=== PATIENT | male | born 2000 | race Caucasian/White ===

== ENCOUNTER 2020-12-07 14:35 | Observation (INO) | payer SELFPAY ==
--- NOTE | ~2020-12-07 | CT_ITS ---
EXAMINATION: CT abdomen pelvis w con DATE: 12/07/2020 18:06 INDICATION: Left lower quadrant pain TECHNIQUE: Computed tomography (CT) of the abdomen and pelvis was performed with 100 cc Omnipaque 350 intravenous contrast. The dose-length product was 623.34 mGy-cm. Automated exposure control and iter ative reconstruction technique were employed. COMPARISON: None. FINDINGS: Lung bases are unremarkable. Heart size normal. No significant pleural or pericardial effus ion. No significant vascular abnormality. There is thickening of the distal tip of the appendix which crosses to the left of midline measuring up to 1.3 cm. There are appendicoliths in the distal aspect to the appendix with appendiceal wall enh ancement. Findings compatible with acute appendicitis. There is fatty infiltration of the wall of the colon. Nonobstructive bowel gas pattern. Gallbladder is present. The liver, spleen, pancreas, adrenal glands and kidneys are unremarkable. Fat-containing umbilical he rnia. IMPRESSION: 1. Elongated appendix which extends to the left of midline. There are multiple appendicoliths with wa ll thickening/enhancement and mild periappendiceal inflammation, compatible with acute uncomplicated appendicitis. Reviewed, dictated and finalized at location [facility]. [employer] IMPRESSION: 1. Elongated appendix which extends to the left of midline. There are multiple appendicoliths with wall thickening/enhancement and mild periappendiceal inflam mation, compatible with acute uncomplicated appendicitis.
[2020-12-07 15:31] VITALS: BP 147/84; PULSE 93; RESP 18; O2SAT 99
[2020-12-07 15:43] LABS: Basophils Percent Auto 0.2 % (0.2-1.2); Eosinophils Percent Auto 0.2 % (0-4.4); Hemoglobin 15.7 g/dL (14.0-18.0); Immature Granulocyte Absolute 0.07 K/mm3 (0.00-0.031); Immature Granulocyte Percent A 0.5 % (0-0.5); Lymphocytes Absolute Auto 1.28 K/mm3 (0.9-3.2); Lymphocytes Percent Auto 8.4 % (18.3-44.2); Mean Corpuscular HGB Conc 34.9 g/dl (32-36); Mean Corpuscular Hemoglobin 31.6 pg (26-34); Mean Corpuscular Volume 90.5 fl (80-100); Mean Platelet Volume 10.9 fl (7.4-10.4); Monocytes Absolute Auto 0.8 K/mm3 (0.1-0.6); Neutrophils Absolute Auto 13.1 K/mm3 (1.3-6.7); Neutrophils Percent Auto 85.7 % (45.5-73.1); Platelet Count Result 205 k/mm3 (150-375); Red Blood Count 4.97 M/mm3 (4.6-6.20); Red Cell Distribution Width 11.9 % (11.5-14.5); White Blood Count 15.3 K/mm3 (4.5-10.0)
[2020-12-07 15:50] LABS: Add Urine Microscopic? YES; Amorphous Sediment Urine Few; Appearance Urine Clear (Clear); Bacteria Urine Trace /hpf; Bilirubin Urine Negative (Negative); Blood Urine Negative (Negative); Color Urine Yellow (Yellow); Glucose Urine UA 1+ mg/dL (Negative); Ketones Urine Trace mg/dL (Negative); Leukocyte Esterase Ur Negative LEU/UL (Negative); Mucus Urine Few /lpf; Nitrate Urine Negative (Negative); Protein Urine Negative (Negative); RBC Urine 0-2 /hpf (0-2); Specific Grav Ur 1.024 (1.001-1.035); Squamous Epithelial Cell Urine Rare /hpf (Few); Urobilinogen Urine Negative mg/dL (<2.0); WBC Urine 0-3 /hpf
[2020-12-07 15:54] LABS: Alanine Aminotransferase 22 U/L (4-50); Albumin Level 4.7 g/dL (3.5-5.1); Alkaline Phosphatase 64 U/L (38-126); Anion Gap 9 mmol/L (8-16); Aspartate Amino Transferase 22 U/L (17-59); Bilirubin,Total 0.7 mg/dL (0.2-1.3); Blood Urea Nitrogen 9 mg/dL (9-20); Calcium 9.5 mg/dL (8.4-10.2); Carbon Dioxide 29 mmol/L (22-30); Chloride 103 mmol/L (98-107); Estimated CRCL calculation 131 ml/min; Estimated Glomerular Filt Rate > 60; Glucose 126 mg/dL (75-110); Lipase 56 U/L (23-300); Potassium 3.7 mmol/L (3.4-5.0); Sodium 141 mmol/L (137-145)
--- NOTE | 2020-12-07 17:05 | ED.ABDPAIN ---
HPI - Abdominal Pain General Chief Complaint: Abdominal Pain Stated Complaint: Right Lower Quad Pain Time Seen by Provider: 12/07/20 16:35 Source: patient Mode of arrival: ambulatory Limitations: no limitations History of Present Illness HPI narrative: Patient is a 20-year-old male who presents to emergency department for evaluation of abdominal pain for the last several days that is worsened in severity patient notes pain to the left lower quadrant and left side of the abdomen today did have several episodes of loose stools patient on arrival to emergency department notes that today the pain intensified with associated nausea patient has not had anything for his symptoms nor is he been seen for this complaint denies similar occurrence in the past. Patient denies rectal bleeding melena Related Data Home Medications Medication Instructions Recorded Confirmed No Home Medications 12/07/20 12/07/20 Allergies Allergy/AdvReac Type Severity Reaction Status Date / Time nickel Allergy Rash Verified 12/07/20 15:34 Review of Systems Review of Systems: All systems reviewed & are unremarkable except as noted in HPI and below PMFSH Social History Social History (Updated 12/07/20 @ 17:06 by Ruben Hobbs PA-C) Smoking status: Never smoker Gender identity (if verbalized by the patient): Male Exam Narrative: Exam Narrative: GENERAL: Well-appearing, well-nourished, and in no acute distress. HEAD: Normocephalic, atraumatic. EYES: PERRLA and EOMI. ENT: Nares clear, no rhinorrhea or epistaxis. Mucous membranes moist. CHEST: Clear to auscultation. No respiratory distress. No wheezes rales or rhonchi HEART: Regular rate and rhythm. No murmur heard. Normal peripheral pulses. ABDOMEN: Soft, left-sided abdominal tenderness with voluntary guarding, nondistended, normal active bowel sounds. EXTREMITIES: Normal range of motion. No edema. SKIN: Warm, dry, no rash. NEURO: No focal deficits. Alert and oriented x3. PSYCH: Normal mood and affect. Course Course Emergency Course: Patient was found to have acute appendicitis uncomplicated will be placed in hospital has been hydrated pain well controlled felt appropriate for inpatient therapy will be admitted to the surgical team for removal of appendix tomorrow Consultations Consultation #1: Spoke with Dr. Wilson who would like the patient to be admitted to his service with planned appendectomy for the morning would like [facility]reed[facility] for antibiotic n.p.o. status Date: 12/07/20 Time: 18:32 Vital Signs Vital signs: Vital Signs Pulse Rate 93 12/07/20 15:31 Respiratory Rate 18 12/07/20 15:31 Blood Pressure 147/84 H 12/07/20 15:31 Pulse Oximetry 99 12/07/20 15:31 Pulse Rate 93 12/07/20 15:31 Respiratory Rate 18 12/07/20 15:31 Blood Pressure 147/84 H 12/07/20 15:31 Pulse Oximetry 99 12/07/20 15:31 MDM - Abdominal Pain MDM Narrative Medical decision making narrative: Patient with acute appendicitis will be placed in hospital for planned appendectomy in the morning Lab Data Result diagrams: 12/07/20 15:35 12/07/20 15:35 Labs: Lab Results 12/07/20 12/07/20 12/07/20 Range/Units 15:35 15:35 15:36 WBC 15.3 H (4.5-10.0) K/mm3 RBC 4.97 (4.6-6.20) M/mm3 Hgb 15.7 (14.0-18.0) g/dL Hct 45.0 (42.0-52.0) % MCV 90.5 (80-100) fl MCH 31.6 (26-34) pg MCHC 34.9 (32-36) g/dl RDW 11.9 (11.5-14.5) % Plt Count 205 (150-375) k/mm3 MPV 10.9 H (7.4-10.4) fl Immature Gran % (Auto) 0.5 (0-0.5) % Neut % (Auto) 85.7 H (45.5-73.1) % Lymph % (Auto) 8.4 L (18.3-44.2) % [place] % (Auto) 5.0 (2.6-8.5) % Eos % (Auto) 0.2 (0-4.4) % Baso % (Auto) 0.2 (0.2-1.2) % Lymph # (Auto) 1.28 (0.9-3.2) K/mm3 [place] # (Auto) 0.8 H (0.1-0.6) K/mm3 Eos # (Auto) 0.0 (0-0.3) K/mm3 Baso # (Auto) 0.0 (0.0-0.1) K/mm3 Abs Immat Gran (auto) 0.07 H (0.00-0.031) K/mm3 Absolute
[2020-12-07] MEDS: SODIUM CHLORIDE 0.9% IV 1,000 ML 999 ML IV CONT (17:28)
[2020-12-07] MEDS: FAMOTIDINE 20 MG/2 ML VIAL IV PUSH ×2 (17:28→21:50)
[2020-12-07 20:47] VITALS: BP 121/74; PULSE 78; RESP 16; TEMP 36.7; O2SAT 99
[2020-12-07] MEDS: LACTATED RINGERS 1,000 ML 100 ML IV CONT (21:13)
[2020-12-07 21:15] VITALS: BP 136/76; PULSE 64; RESP 18; TEMP 36.4; O2SAT 100
[2020-12-07 21:16] VITALS: BMI 26.9
--- NOTE | 2020-12-07 21:24 | ADMGEN ---
This patient, Spring Zee, was admitted to Medical Room 250-01. Patient/family oriented to hospital policies and general routines including ID bracelet, bed and alarms, visiting hours, pain management, procedures, bathroom and other care routines, personal items, smoking policy, room service/diet, and visiting hours. Information on how to activate the Rapid Response Team has been discussed. Patient/Family are encouraged to report perceived risks to care and to ask questions if they do not understand what they are told or what they should do.
[2020-12-07 22:00] VITALS: BP 135/73; PULSE 73; RESP 14; TEMP 36.8; O2SAT 100
[2020-12-07 23:01] VITALS: TEMP 37.9
[2020-12-08] VITALS (15 sets, daily range): BP systolic 110–146; BP diastolic 58–88; PULSE 66–104; RESP 12–28; TEMP 36.6–37.6; O2SAT 92–100
[2020-12-08] MEDS: MORPHINE SULFATE (*CRX) 2 MG/ML INJ IV PUSH ×3 (01:28→12:01)
[2020-12-08] MEDS: ONDANSETRON INJ 4 MG/2 ML VIAL IV PUSH ×2 (04:52→10:03)
[2020-12-08 05:45] LABS: Basophils Percent Auto 0.2 % (0.2-1.2); Eosinophils Percent Auto 0.2 % (0-4.4); Hematocrit 43.2 % (42.0-52.0); Hemoglobin 14.9 g/dL (14.0-18.0); Immature Granulocyte Absolute 0.08 K/mm3 (0.00-0.031); Immature Granulocyte Percent A 0.5 % (0-0.5); Lymphocytes Absolute Auto 0.96 K/mm3 (0.9-3.2); Lymphocytes Percent Auto 5.6 % (18.3-44.2); Mean Corpuscular HGB Conc 34.5 g/dl (32-36); Mean Corpuscular Hemoglobin 31.4 pg (26-34); Mean Corpuscular Volume 90.9 fl (80-100); Mean Platelet Volume 11.2 fl (7.4-10.4); Monocytes Absolute Auto 1.6 K/mm3 (0.1-0.6); Monocytes Percent Auto 9.2 % (2.6-8.5); Neutrophils Absolute Auto 14.5 K/mm3 (1.3-6.7); Neutrophils Percent Auto 84.3 % (45.5-73.1); Platelet Count Result 172 k/mm3 (150-375); Red Blood Count 4.75 M/mm3 (4.6-6.20); Red Cell Distribution Width 11.9 % (11.5-14.5); White Blood Count 17.2 K/mm3 (4.5-10.0)
--- NOTE | 2020-12-08 07:10 | P.PNAN_ITS ---
Anes - Eval Pre Procedure Procedure: Operation Date: 12/08/20 09:00 Proposed Procedures p Laparoscopic Appendectomy - Anais Wilson MD Date/Time: 12/08/20 07:10 Pre Op Diagnosis: Acute Appendicitis Patient Data Age: 20 Gender: M Height: 1.88 m Weight: 95 kg Last Vital Signs Temp 37.4 C 12/08/20 05:38 Pulse 104 H 12/08/20 05:38 Resp 18 12/08/20 05:38 BP 122/68 12/08/20 05:38 Pulse Ox 97 12/08/20 05:38 Allergies Allergy/AdvReac Type Severity Reaction Status Date / Time nickel Allergy Rash Verified 12/07/20 15:34 Home Medications Medication Instructions Recorded Confirmed Type No Home Medications 12/07/20 12/07/20 History Laboratory Tests 12/07/20 12/07/20 12/07/20 15:35 15:35 15:36 WBC 15.3 K/mm3 H K/mm3 (4.5-10.0) RBC 4.97 M/mm3 M/mm3 (4.6-6.20) Hgb 15.7 g/dL g/dL (14.0-18.0) Hct 45.0 % % (42.0-52.0) MCV 90.5 fl fl (80-100) MCH 31.6 pg pg (26-34) MCHC 34.9 g/dl g/dl (32-36) RDW 11.9 % % (11.5-14.5) Plt Count 205 k/mm3 k/mm3 (150-375) MPV 10.9 fl H fl (7.4-10.4) Immature Gran % (Auto) 0.5 % % (0-0.5) Neut % (Auto) 85.7 % H % (45.5-73.1) Lymph % (Auto) 8.4 % L % (18.3-44.2) [place] % (Auto) 5.0 % % (2.6-8.5) Eos % (Auto) 0.2 % % (0-4.4) Baso % (Auto) 0.2 % % (0.2-1.2) Lymph # (Auto) 1.28 K/mm3 K/mm3 (0.9-3.2) [place] # (Auto) 0.8 K/mm3 H K/mm3 (0.1-0.6) Eos # (Auto) 0.0 K/mm3 K/mm3 (0-0.3) Baso # (Auto) 0.0 K/mm3 K/mm3 (0.0-0.1) Abs Immat Gran (auto) 0.07 K/mm3 H K/mm3 (0.00-0.031) Absolute Neuts (auto) 13.1 K/mm3 H K/mm3 (1.3-6.7) Absolute Nucleated RBC 0.0 K/mm3 K/mm3 (0.0-0.012) Nucleated RBC % 0.0 % % (0.0-0.2) Sodium 141 mmol/L mmol/L (137-145) Potassium 3.7 mmol/L mmol/L (3.4-5.0) Chloride 103 mmol/L mmol/L (98-107) Carbon Dioxide 29 mmol/L mmol/L (22-30) Anion Gap 9 mmol/L mmol/L (8-16) BUN 9 mg/dL mg/dL (9-20) Creatinine 0.90 mg/dL mg/dL (0.7-1.3) Estim Creat Clear Calc 131 ml/min ml/min Estimated GFR > 60 (59 - ) Glucose 126 mg/dL H mg/dL (75-110) Calcium 9.5 mg/dL mg/dL (8.4-10.2) Total Bilirubin 0.7 mg/dL mg/dL (0.2-1.3) AST 22 U/L U/L (17-59) ALT 22 U/L U/L (4-50) Alkaline Phosphatase 64 U/L U/L (38-126) Total Protein 8.0 g/dL g/dL (6.3-8.2) Albumin 4.7 g/dL g/dL (3.5-5.1)
--- NOTE | 2020-12-08 07:39 | PC.NURSE ---
To OR per [bed], IV [LFA 22].
[2020-12-08] MEDS: LACTATED RINGERS 1,000 ML 30 ML IV CONT ×2 (07:40→09:22)
--- NOTE | 2020-12-08 07:46 | WPDANESEPPF ---
Anes - Initial Pre Proc Eval Procedure: Operation Date: 12/08/20 09:00 Proposed Procedures p Laparoscopic Appendectomy - Anais Wilson MD Date/Time: 12/08/20 07:46 Surgeon: Anais Wilson MD Pre Op Diagnosis: Acute Appendicitis Patient Data Age: 20 Gender: M Height: 1.88 m Weight: 95 kg Last Vital Signs Temp 37.4 C 12/08/20 05:38 Pulse 104 H 12/08/20 05:38 Resp 18 12/08/20 05:38 BP 122/68 12/08/20 05:38 Pulse Ox 97 12/08/20 05:38 Allergies Allergy/AdvReac Type Severity Reaction Status Date / Time nickel Allergy Rash Verified 12/07/20 15:34 Home Medications Medication Instructions Recorded Confirmed Type No Home Medications 12/07/20 12/07/20 History Laboratory Tests 12/07/20 12/07/20 12/07/20 15:35 15:35 15:36 WBC 15.3 K/mm3 H K/mm3 (4.5-10.0) RBC 4.97 M/mm3 M/mm3 (4.6-6.20) Hgb 15.7 g/dL g/dL (14.0-18.0) Hct 45.0 % % (42.0-52.0) MCV 90.5 fl fl (80-100) MCH 31.6 pg pg (26-34) MCHC 34.9 g/dl g/dl (32-36) RDW 11.9 % % (11.5-14.5) Plt Count 205 k/mm3 k/mm3 (150-375) MPV 10.9 fl H fl (7.4-10.4) Immature Gran % (Auto) 0.5 % % (0-0.5) Neut % (Auto) 85.7 % H % (45.5-73.1) Lymph % (Auto) 8.4 % L % (18.3-44.2) [place] % (Auto) 5.0 % % (2.6-8.5) Eos % (Auto) 0.2 % % (0-4.4) Baso % (Auto) 0.2 % % (0.2-1.2) Lymph # (Auto) 1.28 K/mm3 K/mm3 (0.9-3.2) [place] # (Auto) 0.8 K/mm3 H K/mm3 (0.1-0.6) Eos # (Auto) 0.0 K/mm3 K/mm3 (0-0.3) Baso # (Auto) 0.0 K/mm3 K/mm3 (0.0-0.1) Abs Immat Gran (auto) 0.07 K/mm3 H K/mm3 (0.00-0.031) Absolute Neuts (auto) 13.1 K/mm3 H K/mm3 (1.3-6.7) Absolute Nucleated RBC 0.0 K/mm3 K/mm3 (0.0-0.012) Nucleated RBC % 0.0 % % (0.0-0.2) Sodium 141 mmol/L mmol/L (137-145) Potassium 3.7 mmol/L mmol/L (3.4-5.0) Chloride 103 mmol/L mmol/L (98-107) Carbon Dioxide 29 mmol/L mmol/L (22-30) Anion Gap 9 mmol/L mmol/L (8-16) BUN 9 mg/dL mg/dL (9-20) Creatinine 0.90 mg/dL mg/dL (0.7-1.3) Estim Creat Clear Calc 131 ml/min ml/min Estimated GFR > 60 (59 - ) Glucose 126 mg/dL H mg/dL (75-110) Calcium 9.5 mg/dL mg/dL (8.4-10.2) Total Bilirubin 0.7 mg/dL mg/dL (0.2-1.3) AST 22 U/L U/L (17-59) ALT 22 U/L U/L (4-50) Alkaline Phosphatase 64 U/L U/L (38-126) Total Protein 8.0 g/dL g/dL (6.3-8.2) Albumin 4.7 g/dL g/dL (3.5-5.1) Lipase 56 U/L U/L (23-300) Urine Color Yellow (Yellow) Urine Appearance Clear (Clear) Urine pH 5.0 (5.0-9.0) Ur Specific [place] 1.024 (1.001-1.035) Urine Protein Negative mg/dL mg/dL (Negative) Urine Glucose (UA) 1+ mg/dL H mg/dL (Negative) Urine Ketones Trace mg/dL mg/dL (Negative) Ur Blood (Man) Negative (Negative) Urine Nitrate Negative (Negative) Urine Bilirubin Negative (Negative) Urine Urobilinogen Negative mg/dL mg/dL (<2.0) Leukocyte Esterase Rfl Negative GHULAM/UL GHULAM/UL (Negative) Urine RBC 0-2 /hpf /hpf (0-2) Urine WBC 0-3 /hpf /hpf Ur Squamous Epith Cells Rare /hpf /hpf (Few) Amorphous Sediment Few H (None) Urine Bacteria Trace /hpf /hpf Hyaline Casts 1-2 /lpf /lpf (None) Urine Mucus Few /lpf H /lpf 12/08/20 05:08 WBC 17.2 K/mm3 H K/mm3 (4.5-10.0) RBC 4.75 M/mm3 M/mm3 (4.6-6.20) Hgb 14.9 g/dL g/dL (14.0-18.0) Hct 43.2 % % (42.0-52.0) MCV 90.9 fl fl (80-100) MCH 31.4 pg pg (26-34) MCHC 34.5 g/d
--- NOTE | 2020-12-08 08:14 | PM.IMHP ---
H&P: HPI History of Present Illness Date/Time: 12/08/20 08:14 Chief Complaint: abdominal pain Narrative: Spring Zee is a 20 year old male presenting to ED c/o severe lower abd pain c radiation to the back. Pt reports pain is severe and constant, worsened by movement. Pt reports assoc anorexia and nausea. Pt denies any previous episodes. Review of Systems Constitutional: Constitutional: Reports anorexia, Denies body ache(s), Denies chills, Reports fatigue, Denies fever(s), Reports lethargy, Denies malaise, Reports poor appetite, Reports weakness, Denies weight gain and Denies weight loss Eyes: Eyes: Reports no additional eye complaints ENT: Reports system reviewed and no additional complaints, except as documented Cardiovascular: Cardiovascular: Reports no additional cardiovascular complaints Respiratory: Respiratory: Reports no additional respiratory complaints Gastrointestinal: Gastrointestinal: Reports as per HPI Genitourinary: Genitourinary: Reports no additional male genitourinary complaints Musculoskeletal: Musculoskeletal: Reports no additional musculoskeletal complaints Integumentary/Breasts: Skin/Breast: Reports system reviewed and no additional complaints, except as docu Neurologic: Reports system reviewed and no additional complaints, except as documented Psychiatric: Psychiatric: Reports no additional psychiatric complaints Endocrine: Endocrine: Reports no additional endocrine complaints Hematologic/Lymphatic: Hematologic/Lymphatic: Reports no additional hematologic/lymphatic complaints Allergic/Immunologic: Allergic/Immunologic: Reports no additional allergic/immunologic complaints PMFSH Past Medical History Medical History Overweight Family History Family History Sibling Type 1 diabetes mellitus Mother Diabetes mellitus Social History Social History Smoking status: Never smoker Alcohol intake: current Drinks per week: 1 Substance use: never Gender identity (if verbalized by the patient): Male Spiritual care concerns: No Comments pt denies any past abd surgeries Meds Home Medications and Allergies Home Medications Medication Instructions Recorded Confirmed Type No Home Medications 12/07/20 12/07/20 History Allergies Allergy/AdvReac Type Severity Reaction Status Date / Time nickel Allergy Rash Verified 12/07/20 15:34 Vital Signs Vital Signs - 24 hr 12/07/20 15:31 12/07/20 20:47 12/07/20 21:15 Temperature 36.7 C 36.4 C L Pulse Rate 93 78 64 Respiratory Rate 18 16 18 Blood Pressure 147/84 H 121/74 136/76 Pulse Oximetry 99 99 100 12/07/20 22:00 12/07/20 23:01 12/08/20 02:00 Temperature 36.8 C 37.9 C H 37.2 C Pulse Rate 73 94 Respiratory Rate 14 14 Blood Pressure 135/73 111/58 L Pulse Oximetry 100 99 12/08/20 05:38 Temperature 37.4 C Pulse Rate 104 H Respiratory Rate 18 Blood Pressure 122/68 Pulse Oximetry 97 Exam Const: General: cooperative, well developed and acute distress mild Nutritional Appearance: overweight Orientation/consciousness: patient oriented x3 Limitations: no limitations HENMT: Head: normal to inspection, normocephalic and atraumatic Ears: hearing grossly normal bilaterally General nose exam: Normal external nose present Face and sinus: normal facial exam Mouth: Yes Normal oral and palatal mucosa present and Yes moist mucous membranes Eyes: General: appearance normal, both eyes and all related structures Pupils: Equal, round and reactive pupils present EOM: EOMs intact bilaterally Neck: Neck: normal visual inspection, full ROM and no lymphadenopathy Chest: Chest palpation & inspection: normal inspection of the chest Resp: Effort & Inspection: normal respiratory effort Auscultation: clear to auscultation bilaterally Cardio: Jugular venous
--- NOTE | 2020-12-08 08:19 | WPDHPUPDATE1 ---
History and Physical Update Update Date/Time: 12/08/20 08:19 History and Physical has been reviewed, including an updated exam of the patient. There are NO changes in the patient's condition. Risks, benefits, and alternatives have been discussed and questions answered. Patient agrees to proceed with procedure.
[2020-12-08] MEDS: BUPIVACAINE/EPINEPHRINE 0.25% 50 ML VIAL 20 ML INFILTRATE (08:54)
--- NOTE | 2020-12-08 09:18 | PM.PROC ---
Procedure Note - Detailed Date of procedure: 12/08/20 Pre-op diagnosis: Acute Appendicitis acute appendicitis Procedure performed: Laparoscopic appendectomy Description of procedure: The patient was brought into the operating room placed in the supine position. After adequate induction of general anesthesia, the patient was prepped and draped in normal sterile fashion. A time-out was then done to verify the patient's identity as well as the procedure being performed. I began by making a 5 mm incision in the infraumbilical region. A veres needle was used to gain access into the peritoneal cavity. Once into the peritoneal cavity, CO2 gas was insufflated. After adequate pneumoperitoneum was achieved, a 5 mm Optiview trocar was placed into the peritoneal cavity. The laparoscope was placed into the 5 mm trocar. Under direct visualization, I went ahead and placed a further 5 mm suprapubic port as well as a 12 mm port in the left lower abdomen. At this point, I was able to visualize cecum. The cecum was retracted both cephalad and medial, and this allowed us to expose the appendix. The appendix was noted to be very dilated, injected, and inflamed. There was no obvious perforation of the appendix. I then grasped the appendix near the tip of the appendix and retracted both anterior and lateral. This allowed exposure of the base of the appendix with the cecum. I then created a window with the Marisol dissector between the appendix and the mesoappendix at the base of the appendix. Once this was achieved, a vascular staple load on the Endo-ANTONIO was placed through the 12 mm port site and subsequently transected the mesoappendix. I then reloaded the Endo-ANTONIO with a blue staple load and transected the base of the appendix with the cecum. Once the appendiceal specimen was completely detached, a Endo pouch was placed through the 12 mm port site. The appendix was placed into the Endo pouch and removed through the 12 mm port site. The appendix will now be sent to pathology for further review. I then visualized the right lower quadrant, both staple lines were noted to be intact and hemostatic. No other pathology was noted in the right lower quadrant or pelvis. I then moved the laparoscope to the 5 mm suprapubic port. I then visualized our port of entry at the 5 mm infraumbilical site. No iatrogenic injury or other pathology was seen in the upper abdomen. I then desufflated the abdomen and all ports were removed. The fascia of the 12 mm port site was closed with an 0 Vicryl figure of 8 suture. All port sites were then closed with 4 O Monocryl subcuticular suture. The patient tolerated the procedure well and was extubated in the operating room postoperatively. The patient will be transferred to the recovery room in stable condition. Anesthesia: GETA Surgeon: Anais Wilson MD Estimated blood loss (mL): 5 Drains: No Packing: No Pathology: yes Complications: No immediate complications Condition: stable Disposition: PACU Findings: Acute uncomplicated appendicitis
--- NOTE | 2020-12-08 09:20 | PM.DS ---
DS: Admitting Diagnosis Admitting Diagnosis Admitting Diagnosis: acute appendicitis DS: Discharge Diagnosis Discharge Diagnosis (1) Acute appendicitis: Code(s): K35.80 - Unspecified acute appendicitis Status: Acute Assessment and Plan: s/p lap appy, doing well, routine postop care, f/u 2 wks DS: Summary Hospital Course Reason for hospitalization: acute appendicitis Hospital Course: Pt is a 20 y/o M presenting to ED c/o severe lower abd pain. Workup in ED, including imaging, was significant for acute appendicitis. Pt was admitted and started on IV abx. Upon eval by surgery, decision was made to proceed to OR urgently for appendectomy. Pt taken for lap appy, please see full report for details. Postop, pt did well and will be dc'd home c instructions for routine postop care and po analgesia. Pt to f/u in 2 wks. Status at Discharge Functional status at discharge: independent ambulation Overall status at discharge: patient is progressing back to baseline Time Spent with Patient Time attestation: Total time spent providing and/or coordinating discharge services: Time spent: Less than 30 minutes Exam Const: General: cooperative, comfortable and no acute distress Resp: Effort & Inspection: normal respiratory effort Auscultation: clear to auscultation bilaterally Cardio: Rate: regular rate Rhythm: regular rhythm GI: Inspection: normal to inspection, distended and incision GI Palp: Yes Soft to palpation, Yes Tenderness to palpation present (GI), No Guarding due to palpation present (GI) and No Rigid due to palpation Other: soft, sl dist, jessica TTP, incisions C/D/I DS: Data Data Completed and Pending Pending studies at discharge: Pending at discharge 12/08/20 08:57 Surgical [PTH] Routine Labs on day of discharge: Labs from last 24 hours 12/08/20 12/07/20 12/07/20 05:08 15:36 15:35 WBC 17.2 H RBC 4.75 Hgb 14.9 Hct 43.2 MCV 90.9 MCH 31.4 MCHC 34.5 RDW 11.9 Plt Count 172 MPV 11.2 H Immature Gran % (Auto) 0.5 Neut % (Auto) 84.3 H Lymph % (Auto) 5.6 L [place] % (Auto) 9.2 H Eos % (Auto) 0.2 Baso % (Auto) 0.2 Lymph # (Auto) 0.96 [place] # (Auto) 1.6 H Eos # (Auto) 0.0 Baso # (Auto) 0.0 Abs Immat Gran (auto) 0.08 H Absolute Neuts (auto) 14.5 H Absolute Nucleated RBC 0.0 Nucleated RBC % 0.0 Sodium 141 Potassium 3.7 Chloride 103 Carbon Dioxide 29 Anion Gap 9 BUN 9 Creatinine 0.90 Estim Creat Clear Calc 131 Estimated GFR > 60 Glucose 126 H Calcium 9.5 Total Bilirubin 0.7 AST 22 ALT 22 Alkaline Phosphatase 64 Total Protein 8.0 Albumin 4.7 Lipase 56 Urine Color Yellow Urine Appearance Clear Urine pH 5.0 Ur Specific [place] 1.024 Urine Protein Negative Urine Glucose (UA) 1+ H Urine Ketones Trace Ur Blood (Man) Negative Urine Nitrate Negative Urine Bilirubin Negative Urine Urobilinogen Negative Leukocyte Esterase Rfl Negative Urine RBC 0-2 Urine WBC 0-3 Ur Squamous Epith Cells Rare Amorphous Sediment Few H Urine Bacteria Trace Hyaline Casts 1-2 Urine Mucus Few H 12/07/20 15:35 WBC 15.3 H RBC 4.97 Hgb 15.7 Hct 45.0 MCV 90.5 MCH 31.6 MCHC 34.9 RDW 11.9 Plt Count 205 MPV 10.9 H Immature Gran % (Auto) 0.5 Neut % (Auto) 85.7 H Lymph % (Auto) 8.4 L [place] % (Auto) 5.0 Eos % (Auto) 0.2 Baso % (Auto) 0.2 Lymph # (Auto) 1.28 [place] # (Auto) 0.8 H Eos # (Auto) 0.0 Baso # (Auto) 0.0 Abs Immat Gran (auto) 0.07 H Absolute Neuts (auto) 13.1 H Absolute Nucleated RBC 0.0 Nucleated RBC % 0.0 Sodium Potassium Chloride Carbon Dioxide Anion Gap BUN Creatinine Estim Creat Clear Calc Estimated GFR Glucose Calcium Total Bilirubin AST ALT Alkaline Phosphatase Total Protein Albumin Lipase Urine Color Urine Appearance Urine pH Ur Specific [place] Ur
[2020-12-08] MEDS: fentaNYL CITRATE INJ (*CRX) 100 MCG/2 ML VIAL 25 MCG IV PUSH ×4 (10:09→10:51)
--- NOTE | 2020-12-08 11:13 | PC.NURSE ---
Returned from OR per bed. Report received from Bart ERVIN.
[2020-12-08] MEDS: FAMOTIDINE 20 MG/2 ML VIAL IV PUSH (11:18)
[2020-12-08] MEDS: HYDROcodone/acetaminophen (*CRX) 5-325 MG TABLET 1 TAB PO (15:09)
== END 2020-12-08 17:30 | disposition home or self-care (01) ==
LOC: ANHED 18:37 → ANH2MED 19:40
PROVIDERS: Emergency Medicine Emergency Medical Services; Admitting Provider Surgery; Emergency Provider Emergency Medicine; Visit Provider Surgery
PROC: 0DTJ4ZZ Resection of Appendix, Percutaneous Endoscopic Approach (ICD-10-PCS; CPT 44970; principal; 2020-12-08 09:00)
DX: K35.30 Acute appendicitis with localized peritonitis, without perforation or gangrene (principal); R10.9 Unspecified abdominal pain; E66.3 Overweight; Z68.26 Body mass index [BMI] 26.0-26.9, adult
CPT/HCPCS: 44970; 36415; 74177; 80053; 81001; 83690; 85025; 88304; 96361; 96365; 96366; 96367; 96375; 96376; 99285; A9270; G0378; G0379; J0131; J0330; J1100; J2250; J2270; J2405; J2543; J2704; J3010; J7030; J7120; Q9967

== ENCOUNTER 2020-12-20 15:00 | Observation (INO) | payer SELFPAY ==
--- NOTE | ~2020-12-20 | CT_ITS ---
EXAMINATION: CT abdomen pelvis w con EXAM DATE: 12/20/2020 19:06 INDICATION: Right lower quadrant pain, status post appendectomy. TECHNIQUE: Spiral CT of the abdomen and pelvis was performed following intravenous injection of 100 m L Omnipaque 350. Axial, coronal and sagittal images were reviewed. The dose-length product (DLP) fo r this examination was 528.03 mGy-cm. The exposure was tailored according to patient size (auto mA e xposure control), and iterative reconstruction (ASIR) was used as additional dose reduction technique . Comparison is made to prior examination from 12/07/2020. FINDINGS: Surgical changes from interval appendectomy. There is phlegmon at the surgical site, with a 2 cm pericecal region which could be early organizing abscess. Some reactive lymphadenopathy. There is edema of the cecum and the terminal ileum. Small amount of reactive free pelvic fluid. No free air . The liver, spleen, adrenal glands and pancreas are unremarkable. Splenule. Gallbladder is unremarkabl e. No biliary obstruction. Portal and splenic veins are patent. Kidneys enhance symmetrically. Th ere is no hydronephrosis. The prostate is unremarkable. The bladder is unremarkable. There is no retroperitoneal or pelvic lymphadenopathy. The stomach and small bowel are unremarkable. There is expected amount of colonic stool. The heart is normal in size. There are no pericardial or pleural effusions. The lung bases are unremarkable. The bones are unremarkable. IMPRESSION: Pericecal phlegmon and possibly early organizing abscess. Reviewed, dictated and finalized at location A. ER
[2020-12-20 15:09] VITALS: BP 149/81; PULSE 114; RESP 18; TEMP 36.4; O2SAT 100
--- NOTE | 2020-12-20 15:16 | ED.ABDPAIN ---
HPI - Abdominal Pain General Chief Complaint: Abdominal Pain Stated Complaint: abd pain Time Seen by Provider: 12/20/20 15:05 Source: patient Mode of arrival: ambulatory Limitations: clinical condition History of Present Illness HPI narrative: Patient is 20 years old white male presents with right lower quadrant pain started last night, sharp, no radiation, worse with movement, better laying down still. Patient denies any fever, chills, nausea, vomiting. Patient is status post appendectomy 2 weeks ago. Related Data Allergies Allergy/AdvReac Type Severity Reaction Status Date / Time nickel Allergy Rash Verified 12/08/20 08:34 Review of Systems Review of Systems: Narrative: CONSTITUTIONAL: Denies fever, chills, or sweats. EYES: Denies visual changes, redness, or discharge. ENT: Denies rhinorrhea, congestion, sore throat, or otalgia. CARDIOVASCULAR: Denies chest pain, palpitations, or edema. RESPIRATORY: Denies cough or dyspnea. GASTROINTESTINAL: Denies abdominal pain, nausea, vomiting, or diarrhea. GENITOURINARY: Denies dysuria or hematuria. SKIN: Denies rash or itching. MUSCULOSKELETAL: Denies back pain, joint pain, or myalgia. NEUROLOGIC: Denies headache, numbness, or weakness. PSYCHIATRIC: Denies anxiety or depression. [facility] Past Medical History Medical History Overweight Family History Family History Sibling Type 1 diabetes mellitus Mother Diabetes mellitus Social History Social History Smoking status: Never smoker Alcohol intake: current Drinks per week: 1 Substance use: never Gender identity (if verbalized by the patient): Male Spiritual care concerns: No Exam Narrative: Exam Narrative: General appearance: Well-developed, well-nourished Skin: Normal color Head: Normocephalic, nontraumatic Eyes: Clear conjunctiva ENT: Oropharynx normal, ears normal, nose normal Neck: Supple, nontender Chest and respiratory: Airway patent, no respiratory distress, no accessory muscle use Heart: Regular rate/rhythm Abdomen: Soft, severe tenderness right lower quadrant, no organomegaly, quiet bowel sounds Vascular: Normal peripheral pulses, normal capillary refill. Musculoskeletal: Normal range of motion, nontender back Neurologic: Alert and oriented ?3, CASKET LINER is normal as tested, no gross motor deficit Course Course Emergency Course: Stable Consultations Consultation #1: DR SMITH Admit to Dr. Wilson, n.p.oJoe, Sreedhar BANKS Date: 12/20/20 Time: 20:43 Vital Signs Vital signs: Vital Signs Temperature 36.4 C L 12/20/20 15:09 Pulse Rate 114 H 12/20/20 15:09 Respiratory Rate 18 12/20/20 15:09 Blood Pressure 149/81 H 12/20/20 15:09 Pulse Oximetry 100 12/20/20 15:09 Temperature 36.4 C L 12/20/20 15:09 Pulse Rate 114 H 12/20/20 15:09 Respiratory Rate 18 12/20/20 15:09 Blood Pressure 149/81 H 12/20/20 15:09 Pulse Oximetry 100 12/20/20 15:09 MDM - Abdominal Pain MDM Narrative Medical decision making narrative: Patient presents with right lower quadrant pain, status post appendectomy 2 weeks ago. Labs, CT abdomen pelvis with IV contrast, IV fluid ordered. Further plan to follow Differential Diagnosis Differential diagnosis: Likely calculus of kidney, constipation and other (Intra-abdominal abscess formation) Imaging Data Radiologist's impression: Impressions Abdomen/Pelvis CT 12/20/20 19:10 IMPRESSION: Pericecal phlegmon and possibly early organizing abscess. Critical Care Time Critical Care Time Critical Care Time: Yes To
[2020-12-20 15:25] LABS: Basophils Percent Auto 0.3 % (0.2-1.2); Eosinophils Absolute Auto 0.2 K/mm3 (0-0.3); Eosinophils Percent Auto 1.9 % (0-4.4); Hematocrit 44.7 % (42.0-52.0); Hemoglobin 15.3 g/dL (14.0-18.0); Immature Granulocyte Absolute 0.06 K/mm3 (0.00-0.031); Immature Granulocyte Percent A 0.5 % (0-0.5); Lymphocytes Absolute Auto 2.04 K/mm3 (0.9-3.2); Lymphocytes Percent Auto 16.3 % (18.3-44.2); Mean Corpuscular HGB Conc 34.2 g/dl (32-36); Mean Corpuscular Volume 90.7 fl (80-100); Mean Platelet Volume 10.1 fl (7.4-10.4); Neutrophils Absolute Auto 9.2 K/mm3 (1.3-6.7); Platelet Count Result 280 k/mm3 (150-375); Red Blood Count 4.93 M/mm3 (4.6-6.20); Red Cell Distribution Width 11.9 % (11.5-14.5); White Blood Count 12.5 K/mm3 (4.5-10.0)
[2020-12-20 15:31] LABS: Add Urine Microscopic? YES; Appearance Urine Clear (Clear); Bilirubin Urine Negative (Negative); Blood Urine Negative (Negative); Color Urine Yellow (Yellow); Glucose Urine UA Negative (Negative); Ketones Urine Negative (Negative); Leukocyte Esterase Ur Negative LEU/UL (Negative); Mucus Urine Moderate /lpf; Nitrate Urine Negative (Negative); Protein Urine 1+ mg/dL (Negative); Specific Grav Ur 1.024 (1.001-1.035); Squamous Epithelial Cell Urine Occasional /hpf (Few); WBC Urine 0-3 /hpf
[2020-12-20 15:36] LABS: Alanine Aminotransferase 136 U/L (4-50); Albumin Level 4.3 g/dL (3.5-5.1); Alkaline Phosphatase 91 U/L (38-126); Anion Gap 6 mmol/L (8-16); Aspartate Amino Transferase 80 U/L (17-59); Bilirubin,Total 0.9 mg/dL (0.2-1.3); Blood Urea Nitrogen 9 mg/dL (9-20); Calcium 9.1 mg/dL (8.4-10.2); Carbon Dioxide 32 mmol/L (22-30); Chloride 101 mmol/L (98-107); Estimated CRCL calculation 131 ml/min; Estimated Glomerular Filt Rate > 60; Glucose 114 mg/dL (75-110); Lipase 45 U/L (23-300); Potassium 3.7 mmol/L (3.4-5.0); Sodium 139 mmol/L (137-145)
[2020-12-20] MEDS: MORPHINE SULFATE (*CRX) 4 MG/ML INJ IV PUSH ×2 (15:46→23:13)
[2020-12-20] MEDS: SODIUM CHLORIDE 0.9% IV 1,000 ML 999 ML IV CONT (15:47)
[2020-12-20] MEDS: ONDANSETRON INJ 4 MG/2 ML VIAL IV PUSH (15:47)
[2020-12-20 17:01] VITALS: BP 107/76; PULSE 80; RESP 21; O2SAT 98
[2020-12-20 19:13] VITALS: BP 109/80; PULSE 84; RESP 18; O2SAT 98
[2020-12-20 21:00] VITALS: BP 109/72; PULSE 84; RESP 16; O2SAT 99
[2020-12-20 22:15] VITALS: BP 123/71; PULSE 81; RESP 18; TEMP 36.9; O2SAT 98; BMI 25.7
[2020-12-20 22:25] VITALS: BP 109/74; PULSE 78; RESP 16; TEMP 36.7; O2SAT 99
[2020-12-20 22:30] VITALS: BMI 25.7
--- NOTE | 2020-12-20 22:37 | ADMGEN ---
This patient, Spring Zee, was admitted to [facility] Room 301-01. Patient/family oriented to hospital policies and general routines including ID bracelet, bed and alarms, visiting hours, pain management, procedures, bathroom and other care routines, personal items, smoking policy, room service/diet, and visiting hours. Information on how to activate the Rapid Response Team has been discussed. Patient/Family are encouraged to report perceived risks to care and to ask questions if they do not understand what they are told or what they should do.
[2020-12-20] MEDS: LACTATED RINGERS 1,000 ML 125 ML IV CONT (23:14)
[2020-12-21 05:41] VITALS: BP 105/60; PULSE 55; RESP 18; TEMP 36.5; O2SAT 99
[2020-12-21] MEDS: LACTATED RINGERS 1,000 ML 125 ML IV CONT (06:57)
--- NOTE | 2020-12-21 09:44 | PM.IMHP ---
H&P: HPI History of Present Illness Date/Time: 12/21/20 09:44 Chief Complaint: RLQ Abdominal pain, fever Narrative: Spring Zee is a 20 year old male who recently underwent a laparoscopic appendectomy by Dr. Wilson on 12/08/2020 for acute uncomplicated appendicitis. There were no immediate complications and there were no findings of gross perforation intraoperatively. He was discharged home later that day with analgesics and a stool softener. The patient was progressing as to be expected at home. He only required oral narcotics for the first 3 days post-op and then did not require any analgesics after this. He reports he was feeling well enough to go to work on Friday and started having some right lower quadrant abdominal pain that evening. Initially, this was mild, but it became more severe yesterday evening. He reports having a fever yesterday with a temperature of 101? F. He took Tylenol and this came down. He also reports associated diarrhea over the past week. Due to the abdominal pain and fever, he presented to the ER for further evaluation. CT scan of the abdomen and pelvis showed pericecal phlegmon and possibly early organizing abscess. Labs revealed mild leukocytosis. Our service was consulted by the ED physician and he is being admitted in this setting. He is now being seen on the medical floor this morning. Pathology reviewed and showed acute appendicitis with perforation, fecaliths, and acute serositis. Review of Systems Constitutional: Constitutional: Reports as per HPI, Reports chills, Denies fatigue, Reports fever(s) and Denies headache(s) Eyes: Eyes: Reports no additional eye complaints and Denies change in vision ENT: Reports Normal hearing present, Denies dizziness and Denies headache(s) Cardiovascular: Cardiovascular: Reports no additional cardiovascular complaints, Denies chest pain, Denies leg edema and Denies radiating jaw, neck or arm pain Respiratory: Respiratory: Reports no additional respiratory complaints, Denies cough, Denies dyspnea and Denies wheezing Gastrointestinal: Gastrointestinal: Reports as per HPI, Reports no additional gastrointestinal complaints, Reports abdominal pain, Denies melena, Denies bloating, Denies hematochezia, Denies constipation, Reports diarrhea, Denies nausea and Denies vomiting Genitourinary: Genitourinary: Reports no additional male genitourinary complaints, Denies hematuria, Denies dysuria and Reports other (dark urine x 2 days) Musculoskeletal: Musculoskeletal: Reports no additional musculoskeletal complaints, Denies deformity, Denies joint swelling, Denies radiating pain into limb and Denies tingling Integumentary/Breasts: Skin/Breast: Denies pruritus, Denies lesions, Denies erythema, Denies wounds and Denies jaundice Neurologic: Reports system reviewed and no additional complaints, except as documented, Denies syncope, Denies tingling and Denies tremor(s) Psychiatric: Psychiatric: Denies anxiety and Denies depression [facility] Past Medical History Medical History Overweight Surgical History Surgical History Status post laparoscopic appendectomy Family History Family History Sibling Type 1 diabetes mellitus Mother Diabetes mellitus Social History Social History Smoking status: Never smoker Second hand tobacco smoke exposure: Yes Alcohol intake: former Drinks per week: 1 Substance use: never Occupation/Education: occupation Gender identity (if verbalized by the patient): Male Spiritual care concerns: No Meds Home Medications and Allergies Home Medications Medication Instructions Recorded Confirmed Type No Home Medications 12/21/20 12/21/20 History Allergies Allergy/AdvReac Type Severity Reaction Status Date / Time
[2020-12-21 14:00] VITALS: BP 119/64; PULSE 64; RESP 16; TEMP 36.6; O2SAT 98
[2020-12-21 22:00] VITALS: BP 114/77; PULSE 55; RESP 18; TEMP 36.5; O2SAT 98
[2020-12-22 05:41] VITALS: BP 112/53; PULSE 54; RESP 18; TEMP 36.7; O2SAT 98
[2020-12-22 06:26] LABS: Hematocrit 45.5 % (42.0-52.0); Hemoglobin 15.5 g/dL (14.0-18.0); Mean Corpuscular HGB Conc 34.1 g/dl (32-36); Mean Corpuscular Hemoglobin 30.5 pg (26-34); Mean Corpuscular Volume 89.6 fl (80-100); Mean Platelet Volume 10.4 fl (7.4-10.4); Platelet Count Result 318 k/mm3 (150-375); Red Blood Count 5.08 M/mm3 (4.6-6.20); Red Cell Distribution Width 11.7 % (11.5-14.5); White Blood Count 5.4 K/mm3 (4.5-10.0)
[2020-12-22 06:39] LABS: Anion Gap 7 mmol/L (8-16); Blood Urea Nitrogen 8 mg/dL (9-20); Calcium 9.9 mg/dL (8.4-10.2); Carbon Dioxide 33 mmol/L (22-30); Chloride 100 mmol/L (98-107); Estimated CRCL calculation 131 ml/min; Estimated Glomerular Filt Rate > 60; Glucose 113 mg/dL (75-110); Potassium 3.7 mmol/L (3.4-5.0); Sodium 140 mmol/L (137-145)
[2020-12-22 09:08] VITALS: O2SAT 98
--- NOTE | 2020-12-22 13:16 | PM.DS ---
DS: Admitting Diagnosis Admitting Diagnosis Admitting Diagnosis: pericecal inflammation DS: Discharge Diagnosis Discharge Diagnosis (1) Colitis: Code(s): K52.9 - Noninfective gastroenteritis and colitis, unspecified Status: Acute Assessment and Plan: clinically improved, leukocytosis resolved, home c po abx, f/u 2 wks (2) Status post laparoscopic appendectomy: Code(s): Z90.49 - Acquired absence of other specified parts of digestive tract Status: Acute Assessment and Plan: doing well, routine postop care DS: Summary Hospital Course Reason for hospitalization: abdominal pain, fever Hospital Course: Pt presented to ED s/p lap appy on 12/08 c/o recurrent RLQ abd pain, fevers. Workup in ED, including imaging, significant for pericecal inflammation. Pt also c leukocytosis. Pt admitted and started on IV abx. Over the next few days in hospital, pt abd pain resolved and he was champ reg diet s issue. Pt leukocytosis also resolved. Pt will be dc'd home c po abx. Status at Discharge Functional status at discharge: independent ambulation Overall status at discharge: patient is progressing back to baseline Time Spent with Patient Time attestation: Total time spent providing and/or coordinating discharge services: Time spent: Less than 30 minutes Exam Const: General: cooperative, healthy appearing, comfortable and no acute distress Orientation/consciousness: patient oriented x3 Limitations: no limitations Resp: Effort & Inspection: normal respiratory effort Auscultation: clear to auscultation bilaterally Cardio: Jugular venous distension: no JVD Rate: regular rate Rhythm: regular rhythm GI: Inspection: normal to inspection, non-distended and incision GI Palp: Yes Soft to palpation, No Tenderness to palpation present (GI) and No Guarding due to palpation present (GI) Other: soft, ND, NT, incisions well healed DS: Data Data Completed and Pending Labs on day of discharge: Labs from last 24 hours 12/22/20 12/22/20 06:02 06:02 WBC 5.4 RBC 5.08 Hgb 15.5 Hct 45.5 MCV 89.6 MCH 30.5 MCHC 34.1 RDW 11.7 Plt Count 318 MPV 10.4 Sodium 140 Potassium 3.7 Chloride 100 Carbon Dioxide 33 H Anion Gap 7 L BUN 8 L Creatinine 0.90 Estim Creat Clear Calc 131 Estimated GFR > 60 Glucose 113 H Calcium 9.9 Discharge Plan Discharge Attending physician on discharge: Anais Wilson Consulting providers: Mic Barlow Discharging Clinician: Anais Wilson Anticipated Discharge Date/Time: 12/22/20 13:13 Patient Disposition: Home, Self-Care Activity: no shower and as tolerated Diet: as tolerated and regular Wound Care Instructions: incision open to air Patient Instructions: Antibiotic Form, Pain Management (GEN) Stand Alone Forms: General Discharge Information Follow-up/Referrals: Anais Wilson MD [Physician] - 2 Weeks Discharge Medications: New metronidazole [Flagyl] 500 mg tablet 500 mg PO Q12H Qty: 14 RF: 0 ciprofloxacin HCl [Cipro] 500 mg tablet 500 mg PO Q12H Qty: 14 RF: 0 Continued No Home Medications RF: 0 Date of admission: 12/20/20 20:49 Primary Care Provider: PHYSICIAN,PRINCIPAL EMBEDDED SOFTWARE ENGINEER Admitting Provider: Anais Wilson Attending physician on admission: Anais Wilson Condition: Stable Quality VTE Prophylaxis VTE prophylaxis: mechanical ordered
== END 2020-12-22 14:41 | disposition home or self-care (01) ==
LOC: ANHED 20:45 → ANH3MEDSUR 21:47
PROVIDERS: Emergency Medicine; Nurse Practitioner Family; Admitting Provider Surgery; Emergency Provider Emergency Medicine; Visit Provider Surgery
DX: K52.9 Noninfective gastroenteritis and colitis, unspecified (principal); Z90.49 Acquired absence of other specified parts of digestive tract
CPT/HCPCS: 36415; 74177; 80048; 80053; 81001; 83690; 85025; 85027; 96361; 96365; 96375; 99285; G0378; G0379; J2270; J2405; J2543; J7030; J7120; Q9967